=== PATIENT | female | born 1955 | race African-American/Black ===

== ENCOUNTER 2020-08-13 23:03 | Inpatient (IN) | payer MEDICAID ==
[~2020-08-13] VITALS: Ht 165.1 cm; Wt 73.9 kg
[2020-08-13] MEDS ORDERED: SODIUM CHLORIDE 0.9% 1,000 ML IV ONE (23:45)
[2020-08-14 01:27] LABS: BASOPHILS % 0.5 % (0.0-2.0); EOSINOPHILS % 0.1 % (0.0-5.0); HEMATOCRIT. 38.4 % (36.0-48.0); HEMOGLOBIN. 12.6 g/dL (12.0-16.0); LYMPHOCYTES % 13.6 % (20.0-50.0); MEAN CORPUSCULAR HEMOGLOBIN 26.5 pg (28.0-32.0); MEAN CORPUSCULAR VOLUME 80.5 fL (81.0-99.0); MEAN PLATELET VOLUME 9.2 fl (7.4-10.4); NEUTROPHILS % 76.8 % (40.0-76.0); PLATELET 260 x1000/uL (130-400); RED BLOOD CELL COUNT 4.77 mill/uL (4.2-5.4); RED CELL DISTRIBUTION WIDTH 18.4 % (11.6-14.6)
[2020-08-14] MEDS ORDERED: AZITHROMYCIN 500 MG in DEXT 5% WATER 250 ML IV ONE (02:45)
[2020-08-14] MEDS ORDERED: CEFTRIAXONE 1 G PREMIX 50 ML IV ONE (02:45)
[2020-08-14 02:53] LABS: CLARITY URINE CLEAR (CLEAR); COLOR URINE YELLOW (YELLOW); KETONES URINE NEGATIVE (NEGATIVE); LEUKOCYTE ESTERASE URINE NEGATIVE (NEGATIVE); NITRITE URINE NEGATIVE (NEGATIVE); OCCULT BLOOD URINE TRACE (NEGATIVE); PROTEIN URINE 1+ (NEGATIVE); SPECIFIC GRAVITY URINE 1.019 (1.005-1.030)
[2020-08-14] MEDS ORDERED: CEFTRIAXONE 1 G PREMIX 50 ML IV NR (03:30)
[2020-08-14 03:46] LABS: CHLORIDE 108 mEq/L (98-107)
[2020-08-14 04:25] LABS: D-DIMER 0.66 mg/L FEU (<0.50); PROTHROMBIN TIME 10.9 sec (9.6-11.0)
[2020-08-14] MEDS ORDERED: ONDANSETRON HCL 4MG/2ML INJ IV PRN (08:45)
[2020-08-14] MEDS ORDERED: ALBUTEROL 6.7GM HFA INHALER ORI PRN (08:45)
[2020-08-14] MEDS: ENOXAPARIN 40MG/0.4ML SYR SUBCUT SCH (10:35)
[2020-08-14] MEDS: DEXAMETHASONE 4MG TABLET PO SCH (11:08)
[2020-08-15] MEDS ORDERED: CEFTRIAXONE 1 G PREMIX 50 ML IV SCH (04:00)
[2020-08-15] MEDS: ENOXAPARIN 40MG/0.4ML SYR SUBCUT SCH (15:44)
[2020-08-15] MEDS: AZITHROMYCIN 250 MG TABLET PO SCH (15:44)
[2020-08-15] MEDS: DEXAMETHASONE 4MG TABLET PO SCH (15:44)
[2020-08-16] MEDS: CLONIDINE 0.1MG TABLET PO PRN ×2 (01:11→21:19)
[2020-08-16] MEDS: ACETAMINOPHEN 325MG TABLET PO PRN (01:11)
[2020-08-16 03:38] VITALS: BP 175/87
[2020-08-16 04:00] VITALS: BP 121/68
[2020-08-16] MEDS ORDERED: HYDR12.54 PO (04:55)
[2020-08-16] MEDS ORDERED: CILO100T PO (04:55)
[2020-08-16] MEDS ORDERED: LISI-604 PO (04:55)
[2020-08-16] MEDS ORDERED: BACL-141 PO (04:55)
[2020-08-16] MEDS ORDERED: ATOR10TA69 PO (04:55)
[2020-08-16] MEDS ORDERED: MIRT7.5T11 PO (04:55)
[2020-08-16] MEDS ORDERED: GABA-531 PO (04:55)
[2020-08-16] MEDS ORDERED: CLON-457 PO (04:55)
[2020-08-16] MEDS ORDERED: FAMO20TA8 PO (04:55)
[2020-08-16] MEDS ORDERED: CLOP75TA33 PO (04:55)
[2020-08-16] MEDS ORDERED: ASPI-1497 PO (05:19)
[2020-08-16 08:00] VITALS: BP 122/74
[2020-08-16] MEDS: CEFTRIAXONE 1,000 MG in DEXTROSE 5% WATER 50 ML IV SCH (09:03)
[2020-08-16] MEDS: AZITHROMYCIN 250 MG TABLET PO SCH (09:03)
[2020-08-16] MEDS: ENOXAPARIN 40MG/0.4ML SYR SUBCUT SCH (09:03)
[2020-08-16] MEDS: DEXAMETHASONE 4MG TABLET PO SCH (09:03)
[2020-08-16 12:00] VITALS: BP 132/84
[2020-08-16 16:00] VITALS: BP 147/81
[2020-08-16 20:00] VITALS: BP 185/74
[2020-08-17] VITALS: BP 137/66
[2020-08-17 04:00] VITALS: BP 143/62
[2020-08-17] MEDS: ACETAMINOPHEN 325MG TABLET PO PRN ×2 (04:42→21:16)
[2020-08-17] MEDS: CEFTRIAXONE 1,000 MG in DEXTROSE 5% WATER 50 ML IV SCH (10:15)
[2020-08-17] MEDS: DEXAMETHASONE 4MG TABLET PO SCH (10:16)
[2020-08-17] MEDS: ENOXAPARIN 40MG/0.4ML SYR SUBCUT SCH (10:16)
[2020-08-17] MEDS: AZITHROMYCIN 250 MG TABLET PO SCH (10:16)
[2020-08-17 12:00] VITALS: BP 137/70
[2020-08-17 16:00] VITALS: BP 122/54
[2020-08-17 20:00] VITALS: BP 130/71
[2020-08-18] VITALS: BP 126/73
[2020-08-18 04:00] VITALS: BP 149/90
[2020-08-18] MEDS: ACETAMINOPHEN 325MG TABLET PO PRN ×2 (05:17→16:42)
[2020-08-18 08:00] VITALS: BP 136/84
[2020-08-18 08:05] LABS: BASOPHILS % 0.3 % (0.0-2.0); HEMATOCRIT. 38.7 % (36.0-48.0); HEMOGLOBIN. 12.6 g/dL (12.0-16.0); LYMPHOCYTES % 7.3 % (20.0-50.0); MEAN CORPUSCULAR HEMOGLOBIN 26.2 pg (28.0-32.0); MEAN CORPUSCULAR VOLUME 80.4 fL (81.0-99.0); MEAN PLATELET VOLUME 9.1 fl (7.4-10.4); MONOCYTES % 6.3 % (2.0-8.0); NEUTROPHILS % 86.1 % (40.0-76.0); PLATELET 282 x1000/uL (130-400); RED BLOOD CELL COUNT 4.82 mill/uL (4.2-5.4); RED CELL DISTRIBUTION WIDTH 16.9 % (11.6-14.6)
[2020-08-18 08:12] LABS: CHLORIDE 111 mEq/L (98-107)
[2020-08-18] MEDS: CEFTRIAXONE 1,000 MG in DEXTROSE 5% WATER 50 ML IV SCH (08:37)
[2020-08-18] MEDS: ENOXAPARIN 40MG/0.4ML SYR SUBCUT SCH (08:37)
[2020-08-18] MEDS: AZITHROMYCIN 250 MG TABLET PO SCH (08:38)
[2020-08-18] MEDS: DEXAMETHASONE 4MG TABLET PO SCH (08:38)
[2020-08-18 12:00] VITALS: BP 117/71
[2020-08-18 15:57] VITALS: BP 152/99
[2020-08-18 17:26] LABS: BG BASE EXCESS 3.9 mmol/L (-2.0-2.0); BG CARBOXYHEMOGLOBIN 0.6 % (0.5-1.5); BG DEOXYHEMOGLOBIN 13.7 % (0.0-5.0); BG FRACTION INSPIRED OXYGEN 100; BG HCO3 ACT 27.5 mmol/L (22.0-26.0); BG METHEMOGLOBIN 0.1 % (0.0-1.5); BG OXYGEN SATURATION 86.2 % (92.0-98.5); BG OXYHEMOGLOBIN 85.6 % (94.0-97.0); BG PCO2 37.9 mmHg (35.0-45.0); BG PH 7.478 (7.350-7.450); BG PO2 52.4 mmHg (75.0-100.0); BG SAMPLE SITE RIGHT RADIAL; BG TOTAL HEMOGLOBIN 14.8 g/dL (12.0-18.0); BG VENT MODE MASK - NRB
[2020-08-18 20:00] VITALS: BP 160/96
[2020-08-19] MEDS: ACETAMINOPHEN 325MG TABLET PO PRN ×2 (01:08→16:23)
[2020-08-19 08:00] VITALS: BP 141/90
[2020-08-19] MEDS: ENOXAPARIN 40MG/0.4ML SYR SUBCUT SCH (09:24)
[2020-08-19] MEDS: DEXAMETHASONE 4MG TABLET PO SCH (09:25)
[2020-08-19 12:00] VITALS: BP 144/78
[2020-08-19] MEDS: LORAZEPAM 2MG/ML CPJ IV PRN (15:02)
[2020-08-19] MEDS ORDERED: FUROSEMIDE 20MG/2ML VIAL IVP NR (15:30)
[2020-08-19 16:00] VITALS: BP 149/88
[2020-08-19 20:00] VITALS: BP 141/81
[2020-08-20] VITALS: BP 151/81
[2020-08-20] MEDS: CLONIDINE 0.1MG TABLET PO PRN ×2 (05:33→15:29)
[2020-08-20 08:00] VITALS: BP 166/99
[2020-08-20] MEDS: ENOXAPARIN 40MG/0.4ML SYR SUBCUT SCH (08:50)
[2020-08-20 12:00] VITALS: BP 164/93
[2020-08-20] MEDS: DEXAMETHASONE 6MG TABLET PO SCH (15:27)
[2020-08-20] MEDS: LORAZEPAM 2MG/ML CPJ IV PRN ×2 (15:27→21:04)
[2020-08-20] MEDS: AMLODIPINE 10MG TABLET PO SCH (15:27)
[2020-08-20 16:00] VITALS: BP 160/80
[2020-08-20 16:18] LABS: HEMATOCRIT. 46.3 % (36.0-48.0); HEMOGLOBIN. 14.7 g/dL (12.0-16.0); MEAN CORPUSCULAR HEMOGLOBIN 25.8 pg (28.0-32.0); MEAN CORPUSCULAR VOLUME 81.4 fL (81.0-99.0); PLATELET 335 x1000/uL (130-400); RED BLOOD CELL COUNT 5.69 mill/uL (4.2-5.4); RED CELL DISTRIBUTION WIDTH 17.7 % (11.6-14.6)
[2020-08-20 16:22] LABS: CHLORIDE 118 mEq/L (98-107)
[2020-08-20 18:43] LABS: NUCLEATED RED BLOOD CELLS 2 /100 WBC; PLATELET ESTIMATE NORMAL
[2020-08-20 20:00] VITALS: BP 156/96
[2020-08-21] VITALS: BP 127/94
[2020-08-21 04:00] VITALS: BP 157/97
[2020-08-21 08:00] VITALS: BP 159/98
[2020-08-21] MEDS: ENOXAPARIN 40MG/0.4ML SYR SUBCUT SCH (09:11)
[2020-08-21] MEDS: AMLODIPINE 10MG TABLET PO SCH (09:11)
[2020-08-21] MEDS: DEXAMETHASONE 6MG TABLET PO SCH (09:11)
[2020-08-21 12:00] VITALS: BP 158/96
[2020-08-21] MEDS: LORAZEPAM 2MG/ML CPJ IV PRN (14:15)
[2020-08-21] MEDS: DEXTROSE 5% WATER 1,000 ML IV SCH (14:18)
[2020-08-21 16:00] VITALS: BP 139/89
[2020-08-21 20:00] VITALS: BP 140/85
[2020-08-21] MEDS: ACETAMINOPHEN 325MG TABLET PO PRN (21:52)
[2020-08-22] VITALS: BP 135/80
[2020-08-22] MEDS: LORAZEPAM 2MG/ML CPJ IV PRN ×2 (00:03→14:18)
[2020-08-22] MEDS: DEXTROSE 5% WATER 1,000 ML IV SCH ×2 (02:58→17:07)
[2020-08-22 04:00] VITALS: BP 139/97
[2020-08-22] MEDS: ACETAMINOPHEN 325MG TABLET PO PRN (05:25)
[2020-08-22 08:00] VITALS: BP 113/77
[2020-08-22] MEDS: DEXAMETHASONE 6MG TABLET PO SCH (08:42)
[2020-08-22] MEDS: AMLODIPINE 10MG TABLET PO SCH (08:43)
[2020-08-22] MEDS: ENOXAPARIN 40MG/0.4ML SYR SUBCUT SCH (08:43)
[2020-08-22 12:00] VITALS: BP 110/67
[2020-08-22] MEDS: PIPERACILLIN/TAZOBACTAM 3.375 G in DEXT 5% WATER 100 ML IV SCH ×2 (14:42→23:40)
[2020-08-22 16:00] VITALS: BP_SYST 123; BP_SYST 164; BP_DIAS 68; BP_DIAS 90
[2020-08-22 16:01] LABS: HEMOGLOBIN. 14.4 g/dL (12.0-16.0); MEAN CORPUSCULAR HEMOGLOBIN 25.7 pg (28.0-32.0); MEAN CORPUSCULAR VOLUME 80.3 fL (81.0-99.0); MEAN PLATELET VOLUME 9.2 fl (7.4-10.4); PLATELET 374 x1000/uL (130-400); RED CELL DISTRIBUTION WIDTH 17.1 % (11.6-14.6)
[2020-08-22 16:16] LABS: CHLORIDE 118 mEq/L (98-107)
[2020-08-22 16:30] LABS: PLATELET ESTIMATE NORMAL
[2020-08-22 20:00] VITALS: BP 137/91
[2020-08-23] VITALS: BP 119/90
[2020-08-23] MEDS: PIPERACILLIN/TAZOBACTAM 3.375 G in DEXT 5% WATER 100 ML IV SCH ×4 (03:34→21:35)
[2020-08-23 04:00] VITALS: BP 119/67
[2020-08-23] MEDS: DEXTROSE 5% WATER 1,000 ML IV SCH ×2 (06:08→18:49)
[2020-08-23 08:00] VITALS: BP 138/72
[2020-08-23] MEDS: DEXAMETHASONE 6MG TABLET PO SCH (09:08)
[2020-08-23] MEDS: LORAZEPAM 2MG/ML CPJ IV PRN (09:08)
[2020-08-23] MEDS: AMLODIPINE 10MG TABLET PO SCH (09:08)
[2020-08-23] MEDS: ENOXAPARIN 40MG/0.4ML SYR SUBCUT SCH (09:08)
[2020-08-23] MEDS: FUROSEMIDE 40MG/4ML VIAL IVP NR ×3 (10:00→17:09)
[2020-08-23] MEDS ORDERED: DEXTROSE 50% WATER 50ML SYRINGE IV PRN (10:30)
[2020-08-23] MEDS ORDERED: ACETAMINOPHEN 650MG SUPP PR PRN (10:30)
[2020-08-23 10:45] LABS: BG BASE EXCESS -3.7 mmol/L (-2.0-2.0); BG CARBOXYHEMOGLOBIN 0.6 % (0.5-1.5); BG DEOXYHEMOGLOBIN 10.5 % (0.0-5.0); BG FRACTION INSPIRED OXYGEN 100; BG HCO3 ACT 21.2 mmol/L (22.0-26.0); BG OXYGEN SATURATION 89.4 % (92.0-98.5); BG OXYHEMOGLOBIN 88.9 % (94.0-97.0); BG PCO2 38.3 mmHg (35.0-45.0); BG PH 7.362 (7.350-7.450); BG PO2 60.9 mmHg (75.0-100.0); BG SAMPLE SITE RIGHT BRACHIAL; BG TOTAL HEMOGLOBIN 15.4 g/dL (12.0-18.0); BG VENT MODE MASK - NRB
[2020-08-23] MEDS: BLOOD SUGAR DIAGNOSTIC STRIP TEST SCH ×3 (11:35→21:00)
[2020-08-23 12:00] VITALS: BP 115/75
[2020-08-23] MEDS: INSULIN LISPRO 100 UNITS/ML SUBCUT SCH ×3 (12:10→23:41)
[2020-08-23] MEDS ORDERED: LIDOCAINE HCL 1% 20ML VIAL (Pyxis) INJ ONE (12:39)
[2020-08-23] MEDS ORDERED: SODIUM BICARBONATE 4% (2.4MEQ) 5ML VIAL IV ONE (12:39)
[2020-08-23 16:00] VITALS: BP 117/92
[2020-08-23] MEDS ORDERED: INSULIN GLARGINE UD 100 UNITS/ML SYR SUBCUT SCH (16:00)
[2020-08-23 17:55] LABS: HEMATOCRIT. 44.8 % (36.0-48.0); HEMOGLOBIN. 14.4 g/dL (12.0-16.0); MEAN CORPUSCULAR HEMOGLOBIN 26.4 pg (28.0-32.0); MEAN PLATELET VOLUME 9.4 fl (7.4-10.4); PLATELET 386 x1000/uL (130-400); RED BLOOD CELL COUNT 5.47 mill/uL (4.2-5.4); RED CELL DISTRIBUTION WIDTH 17.3 % (11.6-14.6)
[2020-08-23 18:54] LABS: PLATELET ESTIMATE NORMAL
[2020-08-23 20:00] VITALS: BP 119/77
[2020-08-23] MEDS: INSULIN GLARGINE UD 100 UNITS/ML SYR SUBCUT SCH (23:07)
[2020-08-24] VITALS: BP 154/82
[2020-08-24] MEDS: PIPERACILLIN/TAZOBACTAM 3.375 G in DEXT 5% WATER 100 ML IV SCH ×4 (03:05→22:00)
[2020-08-24 04:00] VITALS: BP 117/78
[2020-08-24] MEDS ORDERED: HALOPERIDOL LACTATE 5MG/ML VIAL IM PRN (04:15)
[2020-08-24] MEDS: BLOOD SUGAR DIAGNOSTIC STRIP TEST SCH ×4 (06:40→21:00)
[2020-08-24 06:44] LABS: HEMATOCRIT. 43.6 % (36.0-48.0); HEMOGLOBIN. 14.2 g/dL (12.0-16.0); MEAN CORPUSCULAR HEMOGLOBIN 26.4 pg (28.0-32.0); PLATELET 310 x1000/uL (130-400); RED BLOOD CELL COUNT 5.38 mill/uL (4.2-5.4); RED CELL DISTRIBUTION WIDTH 17.3 % (11.6-14.6)
[2020-08-24] MEDS: INSULIN LISPRO 100 UNITS/ML SUBCUT SCH ×4 (07:10→22:00)
[2020-08-24 08:00] VITALS: BP 148/61
[2020-08-24] MEDS: AMLODIPINE 10MG TABLET PO SCH (09:00)
[2020-08-24] MEDS: INSULIN GLARGINE UD 100 UNITS/ML SYR SUBCUT SCH ×2 (10:24→23:15)
[2020-08-24] MEDS: DEXTROSE 5% WATER 1,000 ML IV SCH ×2 (10:24→22:00)
[2020-08-24] MEDS: ENOXAPARIN 40MG/0.4ML SYR SUBCUT SCH (10:25)
[2020-08-24 12:00] VITALS: BP 151/81
[2020-08-24 12:14] LABS: PLATELET ESTIMATE NORMAL
[2020-08-24] MEDS: RISPERIDONE 0.5MG TABLET PO SCH ×2 (14:01→21:00)
[2020-08-24 16:00] VITALS: BP 160/113
[2020-08-24 20:00] VITALS: BP 121/101
[2020-08-25] VITALS (7 sets, daily range): BP systolic 129–170; BP diastolic 53–83
[2020-08-25] MEDS: PIPERACILLIN/TAZOBACTAM 3.375 G in DEXT 5% WATER 100 ML IV SCH ×4 (02:51→20:34)
[2020-08-25 06:14] LABS: HEMATOCRIT. 42.6 % (36.0-48.0); MEAN CORPUSCULAR HEMOGLOBIN 26.7 pg (28.0-32.0); MEAN CORPUSCULAR VOLUME 81.3 fL (81.0-99.0); MEAN PLATELET VOLUME 9.4 fl (7.4-10.4); PLATELET 242 x1000/uL (130-400); RED BLOOD CELL COUNT 5.24 mill/uL (4.2-5.4); RED CELL DISTRIBUTION WIDTH 16.8 % (11.6-14.6)
[2020-08-25] MEDS: BLOOD SUGAR DIAGNOSTIC STRIP TEST SCH ×4 (06:23→21:27)
[2020-08-25] MEDS: INSULIN LISPRO 100 UNITS/ML SUBCUT SCH ×4 (06:23→22:09)
[2020-08-25] MEDS: RISPERIDONE 0.5MG TABLET PO SCH ×2 (09:35→16:39)
[2020-08-25] MEDS: ENOXAPARIN 40MG/0.4ML SYR SUBCUT SCH (09:35)
[2020-08-25] MEDS: AMLODIPINE 10MG TABLET PO SCH (09:36)
[2020-08-25] MEDS: INSULIN GLARGINE UD 100 UNITS/ML SYR SUBCUT SCH ×2 (10:00→22:09)
[2020-08-25] MEDS: DEXTROSE 5% WATER 1,000 ML IV SCH (11:20)
[2020-08-25] MEDS ORDERED: BISACODYL 10MG SUPP PR NR (16:00)
[2020-08-25] MEDS ORDERED: POTASSIUM CHLORIDE 20MEQ TABLET SR PO NR (17:00)
[2020-08-25 18:04] LABS: PLATELET ESTIMATE NORMAL
[2020-08-25] MEDS ORDERED: HYDROCODONE/ACETAMINOPHEN 5/325MG TABLET PO PRN (18:15)
[2020-08-25] MEDS: METOPROLOL TARTRATE 50MG TABLET PO SCH (18:34)
[2020-08-26] VITALS (16 sets, daily range): BP systolic 54–141; BP diastolic 28–82
[2020-08-26] MEDS: PIPERACILLIN/TAZOBACTAM 3.375 G in DEXT 5% WATER 100 ML IV SCH ×4 (02:15→21:25)
[2020-08-26] MEDS: DEXTROSE 5% WATER 1,000 ML IV SCH ×2 (02:16→13:31)
[2020-08-26] MEDS: INSULIN LISPRO 100 UNITS/ML SUBCUT SCH ×4 (05:57→21:00)
[2020-08-26] MEDS: BLOOD SUGAR DIAGNOSTIC STRIP TEST SCH ×4 (05:57→21:04)
[2020-08-26] MEDS: INSULIN GLARGINE UD 100 UNITS/ML SYR SUBCUT SCH ×2 (10:36→22:00)
[2020-08-26] MEDS: ENOXAPARIN 40MG/0.4ML SYR SUBCUT SCH (10:37)
[2020-08-26] MEDS: RISPERIDONE 0.5MG TABLET PO SCH (10:37)
[2020-08-26] MEDS: AMLODIPINE 10MG TABLET PO SCH (10:37)
[2020-08-26] MEDS: METOPROLOL TARTRATE 50MG TABLET PO SCH (10:38)
[2020-08-26] MEDS ORDERED: FENTANYL CITRATE/PF 2,500 MCG in SODIUM CHLORIDE 0.9% 200 ML IV PRN (15:00)
[2020-08-26] MEDS ORDERED: PROPOFOL 10MG/ML 100ML 100 ML IV PRN (15:00)
[2020-08-26] MEDS ORDERED: NOREPINEPHRINE 8 MG in DEXT 5% WATER 242 ML IV PRN (15:15)
[2020-08-26] MEDS: DOPAMINE 800MG PREMIX (DOUBLE) 800 ML IV SCH ×2 (15:22→21:29)
[2020-08-26 16:00] LABS: BG CARBOXYHEMOGLOBIN 0.9 % (0.5-1.5); BG HCO3 ACT 18.4 mmol/L (22.0-26.0); BG METHEMOGLOBIN 0.4 % (0.0-1.5); BG OXYGEN SATURATION 79.7 % (92.0-98.5); BG OXYHEMOGLOBIN 78.7 % (94.0-97.0); BG PCO2 70.6 mmHg (35.0-45.0); BG PH 7.035 (7.350-7.450); BG PO2 64.1 mmHg (75.0-100.0); BG SAMPLE SITE RIGHT BRACHIAL; BG TOTAL HEMOGLOBIN 12.8 g/dL (12.0-18.0); BG TOTAL RESPIRATORY RATE 20 b/min; BG VENT MODE VENT - AC
[2020-08-26] MEDS ORDERED: IPRATROPIUM/ALBUTEROL 0.5-3(2.5)MG/3ML NEB HHN SCH (16:00)
[2020-08-26] MEDS ORDERED: SODIUM BICARBONATE 8.4% 1 MEQ/ML 50ML SYR IV NR (17:15)
[2020-08-26] MEDS: PANTOPRAZOLE SODIUM 40 MG/VIAL IV SCH (17:22)
[2020-08-26 20:36] LABS: BG BASE EXCESS 0.3 mmol/L (-2.0-2.0); BG CARBOXYHEMOGLOBIN 1.7 % (0.5-1.5); BG DEOXYHEMOGLOBIN 13.9 % (0.0-5.0); BG FRACTION INSPIRED OXYGEN 100; BG HCO3 ACT 24.8 mmol/L (22.0-26.0); BG METHEMOGLOBIN 0.3 % (0.0-1.5); BG OXYGEN SATURATION 85.8 % (92.0-98.5); BG OXYHEMOGLOBIN 84.1 % (94.0-97.0); BG PCO2 39.9 mmHg (35.0-45.0); BG PH 7.412 (7.350-7.450); BG PO2 49.8 mmHg (75.0-100.0); BG SAMPLE SITE RIGHT RADIAL; BG TOTAL HEMOGLOBIN 14.3 g/dL (12.0-18.0); BG VENT MODE VENT - AC
[2020-08-27] VITALS (27 sets, daily range): BP systolic 82–177; BP diastolic 52–102
[2020-08-27 00:49] LABS: CHLORIDE 105 mEq/L (98-107)
[2020-08-27 00:53] LABS: HEMATOCRIT. 40.9 % (36.0-48.0); HEMOGLOBIN. 13.5 g/dL (12.0-16.0); MEAN CORPUSCULAR HEMOGLOBIN 26.3 pg (28.0-32.0); MEAN CORPUSCULAR VOLUME 79.7 fL (81.0-99.0); MEAN PLATELET VOLUME 9.7 fl (7.4-10.4); PLATELET 213 x1000/uL (130-400); RED BLOOD CELL COUNT 5.13 mill/uL (4.2-5.4); RED CELL DISTRIBUTION WIDTH 17.2 % (11.6-14.6)
[2020-08-27] MEDS: DOPAMINE 800MG PREMIX (DOUBLE) 800 ML IV SCH ×5 (01:28→22:22)
[2020-08-27 02:10] LABS: PLATELET ESTIMATE NORMAL
[2020-08-27] MEDS: DEXTROSE 5% WATER 1,000 ML IV SCH ×2 (05:02→16:40)
[2020-08-27] MEDS: PIPERACILLIN/TAZOBACTAM 3.375 G in DEXT 5% WATER 100 ML IV SCH ×3 (05:02→15:35)
[2020-08-27] MEDS: BLOOD SUGAR DIAGNOSTIC STRIP TEST SCH ×4 (06:20→21:00)
[2020-08-27] MEDS: INSULIN LISPRO 100 UNITS/ML SUBCUT SCH ×4 (06:23→22:20)
[2020-08-27] MEDS ORDERED: ASPIRIN 81MG TABLET PO SCH (09:00)
[2020-08-27] MEDS: PANTOPRAZOLE SODIUM 40 MG/VIAL IV SCH (09:42)
[2020-08-27] MEDS: INSULIN GLARGINE UD 100 UNITS/ML SYR SUBCUT SCH ×2 (10:21→22:21)
[2020-08-27 12:45] LABS: BG BASE EXCESS -0.3 mmol/L (-2.0-2.0); BG CARBOXYHEMOGLOBIN 0.3 % (0.5-1.5); BG DEOXYHEMOGLOBIN 5.1 % (0.0-5.0); BG FRACTION INSPIRED OXYGEN 100; BG METHEMOGLOBIN 0.3 % (0.0-1.5); BG OXYGEN SATURATION 94.9 % (92.0-98.5); BG OXYHEMOGLOBIN 94.3 % (94.0-97.0); BG PCO2 29.7 mmHg (35.0-45.0); BG PH 7.488 (7.350-7.450); BG PO2 75.6 mmHg (75.0-100.0); BG SAMPLE SITE RIGHT RADIAL; BG TOTAL HEMOGLOBIN 13.9 g/dL (12.0-18.0); BG VENT MODE VENT - AC
[2020-08-27] MEDS ORDERED: POTASSIUM CHLORIDE 20MEQ TABLET SR PO NR (16:30)
[2020-08-27] MEDS ORDERED: POTASSIUM CHLORIDE 20MEQ/PACKET PO NR (17:00)
[2020-08-27] MEDS ORDERED: LORAZEPAM 2MG/ML CPJ IV PRN (17:45)
[2020-08-27] MEDS: ASCORBIC ACID 500 MG TABLET PO SCH (22:00)
[2020-08-28] VITALS (13 sets, daily range): BP systolic 96–133; BP diastolic 52–77
[2020-08-28] MEDS: BLOOD SUGAR DIAGNOSTIC STRIP TEST SCH ×2 (05:43→11:40)
[2020-08-28] MEDS: DEXTROSE 5% WATER 1,000 ML IV SCH (05:43)
[2020-08-28 06:23] LABS: HEMOGLOBIN. 12.9 g/dL (12.0-16.0); MEAN CORPUSCULAR HEMOGLOBIN 26.3 pg (28.0-32.0); MEAN CORPUSCULAR VOLUME 80.1 fL (81.0-99.0); MEAN PLATELET VOLUME 10.7 fl (7.4-10.4); PLATELET 184 x1000/uL (130-400); RED BLOOD CELL COUNT 4.88 mill/uL (4.2-5.4); RED CELL DISTRIBUTION WIDTH 17.5 % (11.6-14.6)
[2020-08-28] MEDS: DOPAMINE 800MG PREMIX (DOUBLE) 800 ML IV SCH ×2 (08:07→12:32)
[2020-08-28] MEDS ORDERED: ERGOCALCIFEROL 50000UNITS CAPSULE PO SCH (09:00)
[2020-08-28] MEDS ORDERED: ZINC SULFATE 220 MG ( 50 ) CAPSULE PO SCH (09:00)
[2020-08-28] MEDS ORDERED: FAMOTIDINE 20MG/2ML VIAL IV SCH (09:00)
[2020-08-28] MEDS: ASCORBIC ACID 500 MG TABLET PO SCH (09:08)
[2020-08-28] MEDS: INSULIN LISPRO 100 UNITS/ML SUBCUT SCH ×2 (09:11→12:41)
[2020-08-28] MEDS: INSULIN GLARGINE UD 100 UNITS/ML SYR SUBCUT SCH (10:49)
[2020-08-28 12:11] LABS: BG BASE EXCESS 0.4 mmol/L (-2.0-2.0); BG CARBOXYHEMOGLOBIN 0.2 % (0.5-1.5); BG DEOXYHEMOGLOBIN 1.2 % (0.0-5.0); BG FRACTION INSPIRED OXYGEN 100; BG HCO3 ACT 24.3 mmol/L (22.0-26.0); BG METHEMOGLOBIN 0.1 % (0.0-1.5); BG OXYGEN SATURATION 98.8 % (92.0-98.5); BG OXYHEMOGLOBIN 98.5 % (94.0-97.0); BG PH 7.436 (7.350-7.450); BG PO2 150.8 mmHg (75.0-100.0); BG SAMPLE SITE RIGHT RADIAL; BG TOTAL HEMOGLOBIN 14.2 g/dL (12.0-18.0); BG VENT MODE VENT - AC
[2020-08-28] MEDS ORDERED: PHENYLEPHRINE 100 MG in DEXT 5% WATER 240 ML IV PRN (13:15)
[2020-08-28] MEDS ORDERED: LORAZEPAM 2MG/ML CPJ IV NR (17:00)
[2020-08-28] MEDS ORDERED: MORPHINE SULFATE 2 MG/ML CPJ (NOT FOR IM USE) IV NR (17:00)
[2020-08-28] MEDS ORDERED: LORAZEPAM 2MG/ML CPJ IM PRN (17:00)
[2020-08-28] MEDS ORDERED: MORPHINE SULFATE 2 MG/ML CPJ (NOT FOR IM USE) IV PRN (17:00)
[2020-08-28 17:32] LABS: PLATELET ESTIMATE NORMAL
== END 2020-08-28 18:36 | disposition expired | DRG 720 ==
LOC: ER 23:03 → MICUSO 08-14 06:01 → 7EST 08-15 21:12 → MICUSO 08-28 14:41
PROVIDERS: ADMIT Internal Medicine; ATTEND Internal Medicine
PROC: 5A09457 Assistance with Respiratory Ventilation, 24-96 Consecutive Hours, Continuous Positive Airway Pressure (ICD-10-PCS; 2020-08-23)
PROC: 05HY33Z Insertion of Infusion Device into Upper Vein, Percutaneous Approach (ICD-10-PCS; 2020-08-23)
PROC: B54MZZA Ultrasonography of Right Upper Extremity Veins, Guidance (ICD-10-PCS; 2020-08-23)
PROC: 0BH17EZ Insertion of Endotracheal Airway into Trachea, Via Natural or Artificial Opening (ICD-10-PCS; principal; 2020-08-26)
PROC: 5A1945Z Respiratory Ventilation, 24-96 Consecutive Hours (ICD-10-PCS; 2020-08-26)
PROC: 5A12012 Performance of Cardiac Output, Single, Manual (ICD-10-PCS; 2020-08-26)
DX: A41.89 Other specified sepsis (principal); U07.1 COVID-19; J12.82 Pneumonia due to coronavirus disease 2019; E78.5 Hyperlipidemia, unspecified; F41.9 Anxiety disorder, unspecified; J44.0 Chronic obstructive pulmonary disease with (acute) lower respiratory infection; G93.40 Encephalopathy, unspecified; Z66 Do not resuscitate; Z51.5 Encounter for palliative care; R65.21 Severe sepsis with septic shock; E78.00 Pure hypercholesterolemia, unspecified; J96.01 Acute respiratory failure with hypoxia; E11.9 Type 2 diabetes mellitus without complications; R04.2 Hemoptysis; N17.0 Acute kidney failure with tubular necrosis; I69.320 Aphasia following cerebral infarction; Z79.82 Long term (current) use of aspirin; Z79.899 Other long term (current) drug therapy; Z86.74 Personal history of sudden cardiac arrest; I46.9 Cardiac arrest, cause unspecified
CPT/HCPCS: 36415; 36600; 71045; 76937; 80048; 80053; 81003; 82140; 82375; 82728; 82805; 82962; 83036; 83605; 83615; 83880; 84145; 84478; 84484; 85025; 85379; 86140; 93005; 93923; 93970; 94660; 96361; 96365; 96366; 96367; 96372; 99291; C1725; C1769; C1893; C9113; C9803; J0456; J0696; J1265; J1630; J1650; J1815; J1940; J2060; J2270; J2543; J3490; J7030; J7040; J7060; J7070; J8540; U0003